=== PATIENT | female | born 1940 | race Caucasian/White ===

== ENCOUNTER 2016-05-02 12:07 | Inpatient (IN) | payer MEDICARE ==
[2016-05-02] VITALS (7 sets, daily range): BP systolic 125–140; RESP 20; TEMP 98–99; Ht 167.6 cm; Wt 102.0 kg
[~2016-05-02] VITALS: Ht 167.6 cm; Wt 102.0 kg
[2016-05-02] MEDS ORDERED: NITROGLYCERIN 2% OINT 1 INCH PKT TOPICAL ONE (15:55)
[2016-05-02] MEDS ORDERED: Furosemide 40 MG/4 ML VIAL ONE (15:55)
[2016-05-02] MEDS ORDERED: DEXTROSE 50% SYRINGE 50 ML IV PRN (17:40)
[2016-05-02] MEDS ORDERED: GLUCAGON 1 MG VIAL IM PRN (17:40)
[2016-05-02] MEDS ORDERED: BISACODYL 10 MG SUPP RECTAL PRN (17:45)
[2016-05-02] MEDS ORDERED: SALINE FLUSH 10 ML FLUSH PRN (17:45)
[2016-05-02] MEDS ORDERED: BISACODYL EC 5 MG TAB PO PRN (17:45)
[2016-05-02] MEDS ORDERED: MAG HYDROX 30 ML UDC PO PRN (17:45)
[2016-05-02] MEDS: NEB-ATROVENT INH SCH ×2 (18:30→23:13)
[2016-05-02] MEDS: NICOTINE 21 MG/24 HR TRANSDERM SCH (21:29)
[2016-05-02] MEDS: SALINE FLUSH 10 ML FLUSH SCH (21:30)
[2016-05-02] MEDS: DILTIAZEM 60 MG TAB PO SCH (22:45)
[2016-05-03 03:56] VITALS: BP_SYST 109; RESP 20; TEMP 98.4
[2016-05-03] MEDS: SODIUM CHLORIDE 0.9% FLUSH BAG 500 ML IV SCH ×2 (05:12→21:03)
[2016-05-03] MEDS: NEB-ATROVENT INH SCH ×3 (05:16→19:18)
[2016-05-03] MEDS: PANTOPRAZOLE 40 MG TAB PO SCH (05:29)
[2016-05-03] MEDS ORDERED: MISSING DOSE XX ONE (05:30)
[2016-05-03 07:47] VITALS: BP_SYST 144; RESP 22; TEMP 98.9
[2016-05-03] MEDS ORDERED: METOPROLOL XL 50 MG TAB PO SCH (09:00)
[2016-05-03] MEDS: NICOTINE 21 MG/24 HR TRANSDERM SCH (09:09)
[2016-05-03] MEDS: Furosemide 40 MG/4 ML VIAL IV SCH ×2 (09:09→17:08)
[2016-05-03] MEDS: SALINE FLUSH 10 ML FLUSH SCH ×2 (09:10→21:02)
[2016-05-03] MEDS: ASPIRIN EC 81 MG TAB PO SCH (09:10)
[2016-05-03] MEDS: DILTIAZEM 60 MG TAB PO SCH ×2 (09:10→12:36)
[2016-05-03] MEDS: LEVOTHYROXINE 0.175 MG TAB PO SCH (09:10)
[2016-05-03] MEDS: PAROXETINE HCL 20 MG TAB PO SCH (09:10)
[2016-05-03] MEDS: DIGOXIN 0.125 MG TAB PO SCH (11:01)
[2016-05-03 11:52] VITALS: BP_SYST 126; RESP 20; TEMP 98.9
[2016-05-03] MEDS ORDERED: METOPROLOL XL 25 MG TAB PO ONE (14:05)
[2016-05-03 15:58] VITALS: BP_SYST 117; RESP 18; TEMP 99
[2016-05-03] MEDS: DILTIAZEM CD 180 MG CAP PO SCH (16:03)
[2016-05-03] MEDS: NITROGLYCERIN 2% OINT 1 INCH PKT TOPICAL SCH (16:05)
[2016-05-03 19:38] VITALS: BP_SYST 121; RESP 18; TEMP 99.8
[2016-05-03] MEDS: LEVEMIR INSULIN SUBQ SCH (20:49)
[2016-05-03] MEDS: Atorvastatin 40 MG TAB PO SCH (21:02)
[2016-05-03 22:55] VITALS: BP_SYST 153; RESP 16; TEMP 99.7
[2016-05-04 03:02] VITALS: BP_SYST 140; RESP 16; TEMP 98.8
[2016-05-04] MEDS: NEB-ATROVENT INH SCH ×5 (05:26→23:28)
[2016-05-04] MEDS: LEVOTHYROXINE 0.175 MG TAB PO SCH (06:31)
[2016-05-04] MEDS: PANTOPRAZOLE 40 MG TAB PO SCH (06:31)
[2016-05-04 07:42] VITALS: BP_SYST 112; RESP 18; TEMP 98.9
[2016-05-04] MEDS ORDERED: METOPROLOL XL 25 MG TAB PO SCH (09:00)
[2016-05-04] MEDS: Furosemide 40 MG/4 ML VIAL IV SCH ×2 (09:10→17:29)
[2016-05-04] MEDS: PAROXETINE HCL 20 MG TAB PO SCH (09:11)
[2016-05-04] MEDS: ASPIRIN EC 81 MG TAB PO SCH (09:11)
[2016-05-04] MEDS: SALINE FLUSH 10 ML FLUSH SCH ×2 (09:11→21:09)
[2016-05-04] MEDS: NITROGLYCERIN 2% OINT 1 INCH PKT TOPICAL SCH ×3 (09:11→17:29)
[2016-05-04] MEDS: DILTIAZEM CD 180 MG CAP PO SCH (09:11)
[2016-05-04] MEDS: NICOTINE 21 MG/24 HR TRANSDERM SCH (09:12)
[2016-05-04] MEDS ORDERED: AZITHROMYCIN 250 MG TAB PO ONE (10:45)
[2016-05-04] MEDS ORDERED: METOPROLOL XL 25 MG TAB PO ONE (10:45)
[2016-05-04 11:11] VITALS: BP_SYST 116; RESP 18; TEMP 98.8
[2016-05-04] MEDS: DIGOXIN 0.125 MG TAB PO SCH (11:17)
[2016-05-04] MEDS: PREDNISONE 20 MG TAB PO SCH (11:18)
[2016-05-04] MEDS: NEB-BUDESONIDE 0.5 MG INH SCH ×2 (11:32→18:29)
[2016-05-04] MEDS: NEB-BROVANA 15 MCG/2 ML INH SCH ×2 (11:32→18:29)
[2016-05-04 15:22] VITALS: BP_SYST 111; RESP 20; TEMP 98.3
[2016-05-04 20:36] VITALS: BP_SYST 153; RESP 18; TEMP 97.9
[2016-05-04] MEDS: LEVEMIR INSULIN SUBQ SCH (21:00)
[2016-05-04] MEDS: Atorvastatin 40 MG TAB PO SCH (21:09)
[2016-05-04 23:20] VITALS: BP_SYST 133; RESP 18; TEMP 97.8
[2016-05-05] MEDS: SODIUM CHLORIDE 0.9% FLUSH BAG 500 ML IV SCH (00:23)
[2016-05-05] MEDS: Furosemide 40 MG/4 ML VIAL IV SCH ×3 (00:24→15:57)
[2016-05-05 03:54] VITALS: BP_SYST 150; RESP 18; TEMP 98.3
[2016-05-05] MEDS: NEB-BUDESONIDE 0.5 MG INH SCH ×2 (06:30→17:26)
[2016-05-05] MEDS: NEB-ATROVENT INH SCH ×5 (06:30→23:12)
[2016-05-05] MEDS: NEB-BROVANA 15 MCG/2 ML INH SCH ×2 (06:30→17:26)
[2016-05-05] MEDS: LEVOTHYROXINE 0.175 MG TAB PO SCH (06:36)
[2016-05-05] MEDS: PANTOPRAZOLE 40 MG TAB PO SCH (06:36)
[2016-05-05 08:05] VITALS: BP_SYST 132; RESP 18; TEMP 98.2
[2016-05-05] MEDS: SALINE FLUSH 10 ML FLUSH SCH ×2 (09:36→19:55)
[2016-05-05] MEDS: AZITHROMYCIN 250 MG TAB PO SCH (09:37)
[2016-05-05] MEDS: PREDNISONE 20 MG TAB PO SCH (09:37)
[2016-05-05] MEDS: PAROXETINE HCL 20 MG TAB PO SCH (09:37)
[2016-05-05] MEDS: DILTIAZEM CD 180 MG CAP PO SCH (09:37)
[2016-05-05] MEDS: ASPIRIN EC 81 MG TAB PO SCH (09:37)
[2016-05-05] MEDS: NITROGLYCERIN 2% OINT 1 INCH PKT TOPICAL SCH ×3 (09:37→15:57)
[2016-05-05] MEDS: NICOTINE 21 MG/24 HR TRANSDERM SCH (09:38)
[2016-05-05] MEDS: METOPROLOL XL 100 MG TAB PO SCH (09:39)
[2016-05-05] MEDS ORDERED: MISSING DOSE XX ONE (10:40)
[2016-05-05] MEDS: DIGOXIN 0.125 MG TAB PO SCH (12:10)
[2016-05-05 12:39] VITALS: BP_SYST 120; RESP 20; TEMP 97.3
[2016-05-05 15:25] VITALS: BP_SYST 147; RESP 20; TEMP 97.6
[2016-05-05 19:41] VITALS: BP_SYST 118; RESP 20; TEMP 98.1
[2016-05-05] MEDS: Atorvastatin 40 MG TAB PO SCH (19:54)
[2016-05-05] MEDS: LEVEMIR INSULIN SUBQ SCH (21:26)
[2016-05-05 23:25] VITALS: BP_SYST 111; RESP 20; TEMP 98.9
[2016-05-06] MEDS: NITROGLYCERIN 2% OINT 1 INCH PKT TOPICAL SCH ×4 (00:43→23:44)
[2016-05-06] MEDS: Furosemide 40 MG/4 ML VIAL IV SCH ×4 (00:43→23:43)
[2016-05-06 04:00] VITALS: BP_SYST 125; RESP 20; TEMP 98.4
[2016-05-06] MEDS: SODIUM CHLORIDE 0.9% FLUSH BAG 500 ML IV SCH (05:12)
[2016-05-06] MEDS: LEVOTHYROXINE 0.175 MG TAB PO SCH (06:23)
[2016-05-06] MEDS: PANTOPRAZOLE 40 MG TAB PO SCH (06:23)
[2016-05-06] MEDS: NEB-ATROVENT INH SCH ×5 (07:39→22:47)
[2016-05-06] MEDS: NEB-BROVANA 15 MCG/2 ML INH SCH ×2 (07:39→18:29)
[2016-05-06] MEDS: NEB-BUDESONIDE 0.5 MG INH SCH ×2 (07:39→18:29)
[2016-05-06 07:40] VITALS: BP_SYST 127; RESP 20; TEMP 98.4
[2016-05-06] MEDS: SALINE FLUSH 10 ML FLUSH SCH ×2 (08:59→20:50)
[2016-05-06] MEDS: NICOTINE 21 MG/24 HR TRANSDERM SCH (08:59)
[2016-05-06] MEDS: ASPIRIN EC 81 MG TAB PO SCH (09:00)
[2016-05-06] MEDS: DILTIAZEM CD 180 MG CAP PO SCH (09:00)
[2016-05-06] MEDS: PREDNISONE 20 MG TAB PO SCH (09:00)
[2016-05-06] MEDS: PAROXETINE HCL 20 MG TAB PO SCH (09:00)
[2016-05-06] MEDS: AZITHROMYCIN 250 MG TAB PO SCH (09:00)
[2016-05-06] MEDS: METOPROLOL XL 100 MG TAB PO SCH (09:00)
[2016-05-06 11:57] VITALS: BP_SYST 122; RESP 20; TEMP 98.6
[2016-05-06] MEDS: DIGOXIN 0.125 MG TAB PO SCH (12:59)
[2016-05-06 15:37] VITALS: BP_SYST 94; RESP 20; TEMP 97.9
[2016-05-06 19:15] VITALS: BP_SYST 101; RESP 18; TEMP 98.2
[2016-05-06] MEDS: Atorvastatin 40 MG TAB PO SCH (20:50)
[2016-05-06] MEDS: LEVEMIR INSULIN SUBQ SCH (20:51)
[2016-05-06 22:32] VITALS: BP_SYST 123; RESP 20; TEMP 98.3
[2016-05-07 03:11] VITALS: BP_SYST 110; RESP 18; TEMP 98.6
[2016-05-07] MEDS: SODIUM CHLORIDE 0.9% FLUSH BAG 500 ML IV SCH (06:00)
[2016-05-07] MEDS: LEVOTHYROXINE 0.175 MG TAB PO SCH (06:30)
[2016-05-07] MEDS: PANTOPRAZOLE 40 MG TAB PO SCH (06:30)
[2016-05-07] MEDS: NEB-BROVANA 15 MCG/2 ML INH SCH (06:50)
[2016-05-07] MEDS: NEB-ATROVENT INH SCH ×2 (06:50→10:44)
[2016-05-07] MEDS: NEB-BUDESONIDE 0.5 MG INH SCH (06:50)
[2016-05-07 07:40] VITALS: BP_SYST 133; RESP 20; TEMP 98.1
[2016-05-07] MEDS: NITROGLYCERIN 2% OINT 1 INCH PKT TOPICAL SCH (07:55)
[2016-05-07] MEDS: Furosemide 40 MG/4 ML VIAL IV SCH (08:30)
[2016-05-07] MEDS: METOPROLOL XL 100 MG TAB PO SCH (08:30)
[2016-05-07] MEDS: SALINE FLUSH 10 ML FLUSH SCH (08:30)
[2016-05-07] MEDS: ASPIRIN EC 81 MG TAB PO SCH (08:30)
[2016-05-07] MEDS: DILTIAZEM CD 180 MG CAP PO SCH (08:30)
[2016-05-07] MEDS: PAROXETINE HCL 20 MG TAB PO SCH (08:30)
[2016-05-07] MEDS: AZITHROMYCIN 250 MG TAB PO SCH (08:31)
[2016-05-07] MEDS: PREDNISONE 20 MG TAB PO SCH (08:31)
[2016-05-07] MEDS: NICOTINE 21 MG/24 HR TRANSDERM SCH (08:31)
[2016-05-07 11:27] VITALS: BP_SYST 133; RESP 20; TEMP 98.1
[2016-05-07 11:39] VITALS: BP_SYST 132; RESP 20; TEMP 97.4
[2016-05-07] MEDS: DIGOXIN 0.125 MG TAB PO SCH (11:57)
== END 2016-05-07 11:14 | disposition home or self-care (01) | DRG 291 ==
LOC: ENRESERVDT → ENRESERVTM → ER 12:07 → EMR 17:59 → ENPENDDIS 17:59 → PCU 20:05
PROVIDERS: ADMIT Internal Medicine; ATTEND Internal Medicine
CPT/HCPCS: 36415; 71010; 80048; 80053; 80061; 82553; 82947; 83735; 83880; 84484; 85025; 85610; 93005; 93306; 94640; 94799; 96374; 99223; 99231; 99232; 99233; 99238